=== PATIENT | male | born 1990 | race Hispanic/Latino ===

== ENCOUNTER → 2020-03-30 10:04 | Outpatient (CLI) | payer BC, SELFPAY ==
[2020-03-30 11:03] LABS: Add Manual Diff / Slide Review NO; Basophils Absolute Auto 0 /uL (0-100); Basophils Percent Auto 0.7 % (0-2); Eosinophils Absolute Auto 100 /uL (0-450); Eosinophils Percent Auto 1.4 % (2-4); Hematocrit 45.3 % (41-53); Hemoglobin 15.6 g/dL (13.5-17.5); Lymphocytes Absolute Auto 1800 /uL (1100-4500); Lymphocytes Percent Auto 36.9 % (25-40); Mean Corpuscular HGB Conc 34.4 % (30-36); Mean Corpuscular Volume 90.1 fL (80-100); Monocytes Absolute Auto 400 /uL (0-900); Monocytes Percent Auto 7.2 % (3-14); Neutrophils Absolute Auto 2700 /uL (1500-7000); Neutrophils Percent Auto 53.8 % (50-75); Platelet Count 174 X10^3/uL (150-400); Red Blood Cell Count 5.03 X10^6/uL (4.5-5.9); Red Cell Distribution Width 12.8 % (11.6-14.8); White Blood Cell Count 4.9 X10^3/uL (4.5-11.0)
[2020-03-30 11:13] LABS: Hemoglobin A1C% w Est Avg Glu 8.5 % (4.0-6.0)
[2020-03-30 11:19] LABS: Alanine Aminotransferase 70 IU/L (<50); Albumin 4.6 g/dL (3.5-5.0); Albumin Globulin Ratio 1.5 (1.0-2.8); Alkaline Phosphatase 103 U/L (38-126); Aspartate Aminotransferase 40 IU/L (17-59); BUN Creatinine Ratio 12.2 (6-22); Bilirubin Total 0.6 mg/dL (0.2-1.3); Blood Urea Nitrogen 9 mg/dL (9-20); Calcium 9.3 mg/dL (8.4-10.2); Carbon Dioxide 29 mmol/L (22-32); Chloride 103 mmol/L (98-107); Cholesterol 246 mg/dL (140-199); Estimated Glomerular Filt Rate > 60.0 mL/min (>60); Glucose 138 mg/dL (70-100); HDL Cholesterol 58 mg/dL (40-60); HEMOLYSIS < 15 (0-50); LDL Cholesterol Calculated 162 mg/dL (<100); Potassium 4.1 mmol/L (3.4-5.1); Sodium 140 mmol/L (137-145); Total Protein 7.6 g/dL (6.3-8.2); Triglycerides 130 mg/dL (35-150)
== END ==
PROVIDERS: PCP Family Medicine; Referring Provider Family Medicine; Visit Provider Family Medicine
DX: Z83.3 Family history of diabetes mellitus (principal)
CPT/HCPCS: 36415; 80053; 80061; 83036; 85025

== ENCOUNTER → 2020-07-13 10:34 | Outpatient (CLI) | payer BC, SELFPAY ==
[2020-07-13 11:24] LABS: Hemoglobin A1C% w Est Avg Glu 6.4 % (4.0-6.0)
== END ==
PROVIDERS: PCP Family Medicine; Referring Provider Family Medicine; Visit Provider Family Medicine
DX: E11.9 Type 2 diabetes mellitus without complications (principal)
CPT/HCPCS: 36415; 83036

== ENCOUNTER → 2020-11-14 14:18 | Outpatient (CLI) | payer BC, SELFPAY ==
[2020-11-14 16:19] LABS: COVID19 -Nasal RAPID Negative (Negative)
== END ==
PROVIDERS: PCP Family Medicine; Visit Provider Nurse Practitioner Family
DX: Z20.822 Contact with and (suspected) exposure to COVID-19 (principal)
CPT/HCPCS: 87635; C9803

== ENCOUNTER → 2022-06-04 16:08 | Outpatient (CLI) | payer BC, OTHER, MEDICAID, SELFPAY ==
[2022-06-04 16:56] LABS: Alanine Aminotransferase 160 IU/L (<50); Albumin 5.2 g/dL (3.5-5.0); Albumin Globulin Ratio 1.4 (1.0-2.8); Alkaline Phosphatase 83 U/L (38-126); Aspartate Aminotransferase 131 IU/L (17-59); BUN Creatinine Ratio 16.2 (6-22); Blood Urea Nitrogen 30 mg/dL (9-20); Calcium 9.5 mg/dL (8.4-10.2); Carbon Dioxide 27 mmol/L (22-32); Chloride 93 mmol/L (98-107); Cholesterol 277 mg/dL (140-199); Estimated Glomerular Filt Rate 49 mL/min (>60); Globulin 3.8 g/dL (1.7-4.1); Glucose 119 mg/dL (70-100); HDL Cholesterol 56 mg/dL (40-60); HEMOLYSIS < 15 (0-50); LDL Cholesterol Calculated 167 mg/dL (<100); Potassium 3.8 mmol/L (3.4-5.1); Sodium 135 mmol/L (137-145); Triglycerides 270 mg/dL (35-150)
[2022-06-04 17:03] LABS: Hemoglobin A1C% w Est Avg Glu 6.9 % (4.0-6.0)
[2022-06-04 17:34] LABS: TSH w/ Reflex to FT4 1.45 uIU/mL (0.47-4.68)
[2022-06-04 18:15] LABS: Creatinine Urine Random 228.1 mg/dL
[2022-06-04 18:22] LABS: Microalbumi Creatinin Ratio Ur 33.3 ug/mg CR (<30); Microalbumin Urine Random 7.6 mg/dL (0-1.6)
== END ==
PROVIDERS: PCP Family Medicine; Referring Provider Family Medicine; Visit Provider Family Medicine
DX: E11.9 Type 2 diabetes mellitus without complications (principal); E78.2 Mixed hyperlipidemia; I10 Essential (primary) hypertension
CPT/HCPCS: 36415; 80053; 80061; 82043; 82570; 83036; 84443

== ENCOUNTER → 2022-09-15 16:11 | Outpatient (CLI) | payer BC, OTHER, MEDICAID, SELFPAY ==
[2022-09-15 16:44] LABS: Add Manual Diff / Slide Review NO; Basophils Absolute Auto 0 /uL (0-100); Basophils Percent Auto 0.6 % (0-2); Eosinophils Absolute Auto 100 /uL (0-450); Eosinophils Percent Auto 1.9 % (2-4); Hematocrit 40.3 % (41-53); Lymphocytes Absolute Auto 2000 /uL (1100-4500); Lymphocytes Percent Auto 31.2 % (25-40); Mean Corpuscular HGB Conc 34.8 % (30-36); Mean Corpuscular Hemoglobin 30.9 PG (26-34); Mean Corpuscular Volume 88.6 fL (80-100); Monocytes Absolute Auto 500 /uL (0-900); Monocytes Percent Auto 7.6 % (3-14); Neutrophils Absolute Auto 3700 /uL (1500-7000); Neutrophils Percent Auto 58.7 % (50-75); Platelet Count 180 X10^3/uL (150-400); Red Blood Cell Count 4.54 X10^6/uL (4.5-5.9); White Blood Cell Count 6.3 X10^3/uL (4.5-11.0)
[2022-09-15 17:10] LABS: Alanine Aminotransferase 57 IU/L (<50); Albumin 4.9 g/dL (3.5-5.0); Albumin Globulin Ratio 1.7 (1.0-2.8); Alkaline Phosphatase 67 U/L (38-126); Aspartate Aminotransferase 44 IU/L (17-59); BUN Creatinine Ratio 19.1 (6-22); Bilirubin Total 1.1 mg/dL (0.2-1.3); Blood Urea Nitrogen 22 mg/dL (9-20); Calcium 9.3 mg/dL (8.4-10.2); Carbon Dioxide 29 mmol/L (22-32); Chloride 95 mmol/L (98-107); Estimated Glomerular Filt Rate > 60 mL/min (>60); Globulin 2.9 g/dL (1.7-4.1); Glucose 101 mg/dL (70-100); HEMOLYSIS < 15 (0-50); Potassium 3.9 mmol/L (3.4-5.1); Sodium 135 mmol/L (137-145); Total Protein 7.8 g/dL (6.3-8.2)
[2022-09-16 07:50] LABS: Ceruloplasmin 22.8 mg/dL (16.0-31.0)
[2022-09-16 08:10] LABS: HBsAg Screen Negative (Negative); Hepatitis A Antibody IgM Negative (Negative); Hepatitis B Core Antibody IgM Negative (Negative); Hepatitis C Antibody Non Reactive (Non Reactive)
[2022-09-16 16:19] LABS: Albumin 4.4 g/dL (2.9-4.4); Alpha-1-Globulin 0.2 g/dL (0.0-0.4); Alpha-2-Globulin 0.8 g/dL (0.4-1.0); Gamma Globulin 0.8 g/dL (0.4-1.8); Globulin Total 2.9 g/dL (2.2-3.9); Protein, Total 7.3 g/dL (6.0-8.5)
[2022-09-17 11:40] LABS: Beta Globulin, Ur 23.9 % (.); M-Spike % Not Observed % (Not Observed); Urine Total Protein 17.9 mg/dL (Not Estab.)
== END ==
PROVIDERS: PCP Family Medicine; Referring Provider Family Medicine; Visit Provider Family Medicine
DX: E11.9 Type 2 diabetes mellitus without complications (principal); I10 Essential (primary) hypertension; R74.8 Abnormal levels of other serum enzymes; R79.89 Other specified abnormal findings of blood chemistry; R77.9 Abnormality of plasma protein, unspecified
CPT/HCPCS: 36415; 80053; 80074; 82390; 84155; 84156; 84165; 84166; 85025

== ENCOUNTER → 2023-02-06 07:43 | Outpatient (CLI) | payer BC, SELFPAY | PROVIDERS: PCP Family Medicine; Referring Provider Family Medicine; Visit Provider Family Medicine | DX: E11.9 Type 2 diabetes mellitus without complications (principal) | CPT/HCPCS: 36415; 83036 ==

== ENCOUNTER → 2023-05-21 11:00 | Outpatient (CLI) | payer BC, SELFPAY ==
[2023-05-21 12:37] LABS: Urine N gonorrhoeae NOT DETECTED
[2023-05-21 13:06] LABS: Urine Chlamydia NOT DETECTED
== END ==
PROVIDERS: PCP Family Medicine; Visit Provider Nurse Practitioner Family
DX: Z11.3 Encounter for screening for infections with a predominantly sexual mode of transmission (principal)
CPT/HCPCS: 87491; 87591

== ENCOUNTER → 2023-07-24 08:29 | Outpatient (CLI) | payer BC, SELFPAY ==
[2023-07-24 09:07] LABS: Add Manual Diff / Slide Review NO; Basophils Absolute Auto 100 /uL (0-100); Eosinophils Absolute Auto 100 /uL (0-450); Eosinophils Percent Auto 1.8 % (2-4); Hematocrit 44.1 % (41-53); Hemoglobin 15.2 g/dL (13.5-17.5); Lymphocytes Absolute Auto 1700 /uL (1100-4500); Lymphocytes Percent Auto 29.6 % (25-40); Mean Corpuscular HGB Conc 34.4 % (30-36); Mean Corpuscular Hemoglobin 30.8 PG (26-34); Mean Corpuscular Volume 89.5 fL (80-100); Monocytes Absolute Auto 700 /uL (0-900); Monocytes Percent Auto 12.2 % (3-14); Neutrophils Absolute Auto 3200 /uL (1500-7000); Neutrophils Percent Auto 55.4 % (50-75); Platelet Count 217 X10^3/uL (150-400); Red Blood Cell Count 4.93 X10^6/uL (4.5-5.9); Red Cell Distribution Width 13.4 % (11.6-14.8); White Blood Cell Count 5.7 X10^3/uL (4.5-11.0)
[2023-07-24 09:47] LABS: Hemoglobin A1C% w Est Avg Glu 10.3 % (4.0-6.0)
[2023-07-24 09:52] LABS: Alanine Aminotransferase 196 IU/L (<50); Albumin 4.9 g/dL (3.5-5.0); Albumin Globulin Ratio 1.4 (1.0-2.8); Alkaline Phosphatase 92 U/L (38-126); Aspartate Aminotransferase 152 IU/L (17-59); BUN Creatinine Ratio 20.3 (6-22); Bilirubin Total 0.6 mg/dL (0.2-1.3); Blood Urea Nitrogen 15 mg/dL (9-20); Calcium 10.6 mg/dL (8.4-10.2); Carbon Dioxide 27 mmol/L (22-32); Chloride 92 mmol/L (98-107); Cholesterol 247 mg/dL (140-199); Estimated Glomerular Filt Rate > 60 mL/min (>60); Globulin 3.4 g/dL (1.7-4.1); Glucose 218 mg/dL (70-100); HDL Cholesterol 72 mg/dL (40-60); HEMOLYSIS < 15 (0-50); LDL Cholesterol Calculated 144 mg/dL (<100); Potassium 3.8 mmol/L (3.4-5.1); Sodium 136 mmol/L (137-145); Total Protein 8.3 g/dL (6.3-8.2); Triglycerides 156 mg/dL (35-150)
[2023-07-24 10:32] LABS: TSH w/ Reflex to FT4 0.77 uIU/mL (0.47-4.68)
[2023-07-24 12:06] LABS: Creatinine Urine Random 211.2 mg/dL
[2023-07-24 12:10] LABS: Microalbumi Creatinin Ratio Ur 59.1 ug/mg CR (<30); Microalbumin Urine Random 12.5 mg/dL (0-1.6)
== END ==
LOC: LAB 08:29
PROVIDERS: PCP Family Medicine; Referring Provider Family Medicine; Visit Provider Family Medicine
DX: R79.89 Other specified abnormal findings of blood chemistry (principal); R74.8 Abnormal levels of other serum enzymes; I10 Essential (primary) hypertension; E11.9 Type 2 diabetes mellitus without complications
CPT/HCPCS: 36415; 80053; 80061; 82043; 82570; 83036; 84443; 85025

== ENCOUNTER → 2023-09-23 15:23 | Outpatient (CLI) | payer BC, SELFPAY ==
--- NOTE | 2023-09-30 14:32 | DIAB.MNT ---
Initial Diabetes Medical Nutrition Therapy Assessment Name: Cal Barros (Brandin) Date: 09/23/23 Time: 335-445p Dx: Type II Diabetes Riley presents for initial Dm visit. Reports dx about 3-4 years ago. States when he was dx he lost 20#. Fluctuates 200-210# per report. Endorses significant FH of Dm with father and all his siblings. Prior to dx noticed racing heart, likely r/t hyperglycemia. Interested in CGM. Unclear if insurance will cover. Encouraged him to call insurance for info, or consider out of pocket coupons. 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 Reports some stress with being single income family. Also stress with managing DM. Endorses ETOH x 14 servings in a week, ie cocktail x 2-3 in a sitting or none. Reports increase in hgA1c likely r/t reduced physical activity, vacation/holidays, missing meds, not making lunch. Endorses financial constraints on getting Semaglutide. His coworker informed him of a delivery pharmacy with their insurance that offers Semaglutide for much cheaper. Diet Recall: 930a: Almonds, sm orange, light yogurt 12p: nuts, sandwich on ww, +/- salad 330p: apple 6-7p: Protein and veg +/- 1/2c rice or 1c pasta or 3 corn tortillas 64oz water, 1 sf energy drink per week Reports a couple times per week cheat meal eating out. Anthropometrics: Ht: 5'9 Wt: 201# 07/2023 Physical Activity: Very active with job. May walk with 1-2x per week 45-60 min. No other intentional activity. Self-Monitoring Blood Glucose: None, no supplies. Diabetes Medications: 25mg Jardiance 1000mg Metformin BID Semaglutide 0.25 or 0.5mg (not taking yet) Pertinent Labs: HgA1c: 7% (02/2023) 10.3% (07/2023) Past Medical History: (Last Reviewed 05/21/23 @ 10:40 by Iliana Dobbins [facility]-) Abdominal wall mass Diabetes Excessive daytime sleepiness Family history of diabetes mellitus Hyperlipidemia Hypertension Insomnia due to medical condition Loud snoring resolved with CPAP Obesity (BMI 30-39.9) Obstructive sleep apnea, adult Witnessed episode of apnea resolved with CPAP Nutrition Rx: Carbohydrates: Meal:45g Snack:15-30g Nutrition Diagnosis: - Nutrition and food related knowledge deficit r/t no previous education aeb pt report - Excessive ETOH intake r/t >2 servings per sitting aeb diet recall- new - Self monitoring deficit r/t no meter/supplies, SMBG education deficit aeb pt report Intervention: This participant was very receptive. Provided appropriate educational handouts. Discussed the following topics: Completed intake assessment. Discussed barriers to care. Pathophysiology of T2DM HgA1c, its correlation to blood glucose numbers, and rationale for goal Importance of self-monitoring, how often, and when to check. Suggested checking at different times to evaluate meals Plate Method, impact of macronutrients on blood sugar, meal timing, carbohydrate counting, pairing macronutrients and spreading out carbohydrates for better blood glucose management Recommended servings for carbohydrates at meals and snacks Role of physical activity SMBG supplies, RD messaged PCP office for rx CGM options (out of pocket vs coverage) Created SMART goals for patient self-care and success. Goals: Call insurance regarding CGM coverage Call delivery pharmacy regarding Semaglutide supply clerk meter/supplies Pair CHO and protein at meals/snacks Follow-up: NIKHIL STRANGE follow-up in 2-3 weeks Kayla Bentley RDN, ALIE Certified Diabetes Care and Plumber Pipe Fitting P: [phone] Thank you for this referral
== END ==
PROVIDERS: PCP Family Medicine; Referring Provider Family Medicine; Visit Provider Family Medicine
DX: E11.9 Type 2 diabetes mellitus without complications (principal); Z79.84 Long term (current) use of oral hypoglycemic drugs; Z71.3 Dietary counseling and surveillance
CPT/HCPCS: 97802

== ENCOUNTER → 2023-11-05 09:19 | Outpatient (CLI) | payer BC, SELFPAY ==
--- NOTE | 2023-11-30 16:52 | DIAB.FU ---
Follow-up Diabetes Education Assessment Name: Cal Barros) Date: 11/05/23 Time:[id number] Dx: Type II Diabetes Riley presents for Dm follow-up. Potentially interested in CGM, even out of pocket with coupons, though states insurance should cover. Wants to trial starter kit today. Taking Jardiance, Metformin, and Ozempic (now affordable with mail order pharmacy). Diet recall indicates low/moderate CHO intake with paired protein. Self-Monitoring Blood Glucose: Has supplies now. Needing new lacing device. Discussed options for acquiring new one. Wanting more info on BG goals. Checked FBG 2x since last visist: 191 and 201 mg/dl. Both above goal. Diabetes Medications: 25mg Jardiance 1000mg Metformin BID Semaglutide 0.25 or 0.5mg Pertinent Labs: HgA1c: 7% (02/2023) 10.3% (07/2023) Past Medical History: (Last Reviewed 05/21/23 @ 10:40 by HUGH Arias-) Abdominal wall mass Diabetes Excessive daytime sleepiness Family history of diabetes mellitus Hyperlipidemia Hypertension Insomnia due to medical condition Loud snoring resolved with CPAP Obesity (BMI 30-39.9) Obstructive sleep apnea, adult Witnessed episode of apnea resolved with CPAP Intervention: This participant was very receptive. Provided appropriate educational handouts. Discussed the following topics: Recent blood sugar results and trends CGM use, precautions, accuracy, when to finger stick, arrows, self place with instruction BG goals SMBG with finger sticks and accessories Review of general nutrition recommendations and current intake Created SMART goals for patient self-care and success. 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
== END ==
PROVIDERS: PCP Family Medicine; Referring Provider Family Medicine
DX: E11.9 Type 2 diabetes mellitus without complications (principal); Z71.3 Dietary counseling and surveillance; Z79.84 Long term (current) use of oral hypoglycemic drugs; Z79.85 Long-term (current) use of injectable non-insulin antidiabetic drugs
CPT/HCPCS: G0108

== ENCOUNTER → 2024-03-23 11:44 | Outpatient (CLI) | payer BC, SELFPAY ==
[2024-03-23 12:42] LABS: Hemoglobin A1C% w Est Avg Glu 6.3 % (4.0-6.0)
[2024-03-23 12:49] LABS: Alanine Aminotransferase 318 IU/L (<50); Albumin 4.7 g/dL (3.5-5.0); Albumin Globulin Ratio 1.9 (1.0-2.8); Alkaline Phosphatase 61 U/L (38-126); Aspartate Aminotransferase 239 IU/L (17-59); BUN Creatinine Ratio 11.5 (6-22); Bilirubin Total 0.9 mg/dL (0.2-1.3); Blood Urea Nitrogen 9 mg/dL (9-20); Calcium 9.7 mg/dL (8.4-10.2); Carbon Dioxide 23 mmol/L (22-32); Chloride 103 mmol/L (98-107); Cholesterol 247 mg/dL (140-199); Estimated Glomerular Filt Rate > 60 mL/min (>60); Globulin 2.5 g/dL (1.7-4.1); Glucose 107 mg/dL (70-100); HDL Cholesterol 80 mg/dL (40-60); HEMOLYSIS < 15 (0-50); LDL Cholesterol Calculated 148 mg/dL (<100); Potassium 4.3 mmol/L (3.4-5.1); Sodium 136 mmol/L (137-145); Total Protein 7.2 g/dL (6.3-8.2); Triglycerides 93 mg/dL (35-150)
== END ==
PROVIDERS: PCP Family Medicine; Referring Provider Family Medicine; Visit Provider Family Medicine
DX: R74.8 Abnormal levels of other serum enzymes (principal); E78.5 Hyperlipidemia, unspecified; I10 Essential (primary) hypertension; E83.52 Hypercalcemia; E11.9 Type 2 diabetes mellitus without complications
CPT/HCPCS: 36415; 80053; 80061; 82310; 83036; 83970; 86038

== ENCOUNTER → 2024-07-21 12:00 | Outpatient (CLI) | payer BC, SELFPAY ==
--- NOTE | 2024-07-21 | DI.US.S_ITS ---
PROCEDURE: US ABDOMEN LIMITED INDICATIONS: RIGHT UPPER QUADRANT PAIN AND INCREASED LFTS TECHNIQUE: Real-time focused scanning was performed of the abdomen, with image documentation. COMPARISON: None. FINDINGS: Increased hepatic echogenicity. The main portal vein appears patent. Liver measures 14 cm. Unremarkable gallbladder. CBD is not well seen. No gross biliary dilation. Unremarkable pancreas. IMPRESSION: Unremarkable sonographic appearance of the gallbladder. No gross biliary dilation, although the distal CBD was not well seen. Significantly increased hepatic echogenicity is nonspecific, most commonly due to steatosis. Dictated by: Jonatan Coello M.D. on 07/21/2024 at 19:10 Approved by: Jonatan Coello M.D. on 07/21/2024 at 19:11
== END ==
PROVIDERS: PCP Family Medicine; Referring Provider Family Medicine; Visit Provider Family Medicine
DX: R74.8 Abnormal levels of other serum enzymes (principal)
CPT/HCPCS: 76705

== ENCOUNTER → 2024-12-25 15:55 | Outpatient (CLI) | payer BC, SELFPAY ==
[2024-12-25 17:28] LABS: Hemoglobin A1C% w Est Avg Glu 8.7 % (4.0-6.0)
[2024-12-25 17:33] LABS: Alanine Aminotransferase 35 IU/L (<50); Albumin 5.1 g/dL (3.5-5.0); Albumin Globulin Ratio 1.8 (1.0-2.8); Alkaline Phosphatase 93 U/L (38-126); Aspartate Aminotransferase 30 IU/L (17-59); BUN Creatinine Ratio 12.5 (6-22); Bilirubin Total 1.2 mg/dL (0.2-1.3); Blood Urea Nitrogen 11 mg/dL (9-20); Calcium 10.5 mg/dL (8.4-10.2); Carbon Dioxide 27 mmol/L (22-32); Chloride 96 mmol/L (98-107); Estimated Glomerular Filt Rate > 60 mL/min (>60); Globulin 2.9 g/dL (1.7-4.1); Glucose 202 mg/dL (70-99); HEMOLYSIS < 15 (0-50); Potassium 4.4 mmol/L (3.4-5.1); Sodium 135 mmol/L (137-145)
[2024-12-25 17:39] LABS: Microalbumin Urine Random 14.3 mg/dL (0-1.6)
[2024-12-25 17:49] LABS: Creatinine Urine Random 466.39 mg/dL
== END ==
LOC: LAB 15:56
PROVIDERS: PCP Family Medicine; Referring Provider Family Medicine; Visit Provider Family Medicine
DX: E66.9 Obesity, unspecified (principal); I10 Essential (primary) hypertension; E11.9 Type 2 diabetes mellitus without complications; E78.5 Hyperlipidemia, unspecified; R74.8 Abnormal levels of other serum enzymes; F10.10 Alcohol abuse, uncomplicated; E83.52 Hypercalcemia
CPT/HCPCS: 36415; 80053; 82043; 82570; 83036; 84443